=== PATIENT | male | born 1985 | race Asian ===

== ENCOUNTER 2021-08-09 20:45 | Emergency (ER) | payer OTHER ==
[~2021-08-09] VITALS: Ht 170.2 cm; Wt 84.1 kg
[2021-08-09 21:02] LABS: GLUCOSE,POINT OF CARE 167 MG/DL (70-110)
[2021-08-09] MEDS: HYDROCODONE/ACETAMINOPHEN 5-325 MG TABLET PO ONE (22:42)
[2021-08-09 23:05] VITALS: BP 115/71
== END 2021-08-09 23:06 | disposition home or self-care (01) ==
LOC: EMS 20:48
DX: S52.121A Displaced fracture of head of right radius, initial encounter for closed fracture (principal); F12.90 Cannabis use, unspecified, uncomplicated; F17.210 Nicotine dependence, cigarettes, uncomplicated; E11.9 Type 2 diabetes mellitus without complications; W01.198A Fall on same level from slipping, tripping and stumbling with subsequent striking against other object, initial encounter; Y93.89 Activity, other specified; Y92.89 Other specified places as the place of occurrence of the external cause; Y99.8 Other external cause status
CPT/HCPCS: 29105; 82962; 99283

== ENCOUNTER 2024-01-26 01:32 | Emergency (ER) | payer OTHER ==
[~2024-01-26] VITALS: Ht 170.2 cm; Wt 82.5 kg
[2024-01-26] MEDS ORDERED: GEMF600T89 PO (01:41)
[2024-01-26] MEDS ORDERED: METF-446 PO (01:41)
[2024-01-26] MEDS ORDERED: ATEN-72 PO (01:41)
[2024-01-26] MEDS ORDERED: LORA-999 PO (01:41)
[2024-01-26] MEDS: ONDANSETRON HCL 4 MG TABLET PO ONE (02:19)
[2024-01-26] MEDS: ACETAMINOPHEN 500 MG TABLET PO ONE (02:19)
[2024-01-26 02:21] LABS: BASOPHILS % (AUTO) 0.4 % (0.0-2.0); EOSINOPHILS % (AUTO) 0.4 % (1.0-6.0); HEMATOCRIT 45.3 % (41-53); HEMOGLOBIN 15.4 g/dL (13.5-17.5); LYMPHOCYTES # (AUTO) 1.4 K/uL (1.0-4.8); LYMPHOCYTES % (AUTO) 9.2 % (22.0-44.0); MEAN CORPUSCULAR HEMOGLOBIN 30.3 pg (26.0-34.0); MEAN CORPUSCULAR VOLUME 89 fL (80-100); MONOCYTES # (AUTO) 0.9 K/uL (0.1-1.0); MONOCYTES % (AUTO) 6.1 % (2.0-9.0); NEUTROPHILS # (AUTO) 12.6 K/uL (1.8-7.7); NEUTROPHILS % (AUTO) 83.9 % (40.0-70.0); PLATELET COUNT (AUTO) 203 K/uL (150-450); RED BLOOD CELL COUNT(AUTO) 5.08 MIL/uL (4.50-5.90); RED CELL DISTRIBUTION WIDTH 13.3 % (11.5-14.5); WHITE BLOOD COUNT (AUTO) 15.1 K/uL (4.5-11.0)
[2024-01-26 02:37] LABS: ANION GAP 10 mmol/L (8-16); CALCIUM, TOTAL 9.1 mg/dL (8.8-10.5); CARBON DIOXIDE 25 mmol/L (22-29); CHLORIDE 98 mmol/L (98-107); CREATININE 1.11 mg/dL (0.60-1.30); GLOMERULAR FILTR. RATE CALC > 60 mL/min (>60); GLUCOSE,RANDOM 229 mg/dL (70-110); POTASSIUM 4.4 mmol/L (3.5-5.1); SODIUM SERUM 133 mmol/L (136-145); UREA NITROGEN, BLOOD 20 mg/dL (7-18)
[2024-01-26 02:42] LABS: ALANINE AMINOTRANSFERASE 29 U/L (12-78); ALBUMIN 4.6 g/dL (3.4-5.0); ALKALINE PHOSPHATASE 63 U/L (46-116); ASPARTATE AMINOTRANSFERASE 23 U/L (15-37); BILIRUBIN,TOTAL 0.5 mg/dL (0.1-1.0); LIPASE 43 U/L (16-77); TOTAL PROTEIN, SERUM 8.5 g/dL (6.4-8.2)
[2024-01-26 02:43] LABS: ALCOHOL, BLOOD (SERUM) < 3 mg/dL (0-10)
[2024-01-26 03:11] LABS: CREATINE KINASE, TOTAL ONLY 440 U/L (39-308); TROPONIN I-HIGH SENSITIVITY 72 ng/L (<76)
[2024-01-26] MEDS ORDERED: NiCARDipine HCL 25 MG in SODIUM CHLORIDE 0.9% 240 ML IV PRN (03:15)
[2024-01-26] MEDS ORDERED: SODIUM CHLORIDE 0.9% 100 ML ONE (03:18)
[2024-01-26] MEDS ORDERED: IOHEXOL 350 MG/ML 100 ML VIAL ONE (03:18)
[2024-01-26 03:27] LABS: INR 1.1 (0.9-1.1); PROTHROMBIN TIME 11.3 SEC (9.4-11.6)
[2024-01-26] MEDS ORDERED: MIDAZOLAM HCL 5 MG/ML VIAL ONE (03:28)
[2024-01-26 03:35] LABS: LACTIC ACID 3.9 mmol/L (0.4-2.0)
[2024-01-26] MEDS: PROPOFOL 1000 MG/ISO-OSM 100 ML IV PRN (03:35)
[2024-01-26] MEDS: LevETIRAcetam 1,000 MG in DEXTROSE 5%-WATER 100 ML IV ONE (03:36)
[2024-01-26] MEDS: MIDAZOLAM HCL 5 MG/ML VIAL IVP ONE (03:36)
[2024-01-26 03:58] LABS: COVID AG,FIA SOURCE NASAL SWAB
[2024-01-26] MEDS ORDERED: MIDAZOLAM HCL 100 MG in SODIUM CHLORIDE 0.9% 180 ML IV PRN (04:00)
[2024-01-26 04:01] LABS: APPEARANCE,URINE CLEAR (CLEAR); BILIRUBIN,URINE NEGATIVE (NEGATIVE); COLOR,URINE LIGHT YELLOW (YELLOW); GLUCOSE, URINE (UA) TRACE mg/dL (NEGATIVE); KETONES,URINE NEGATIVE (NEGATIVE); LEUKOCYTE ESTERASE ,URINE NEGATIVE (NEGATIVE); NITRATE,URINE NEGATIVE (NEGATIVE); OCCULT BLOOD,URINE NEGATIVE (NEGATIVE); PH,URINE 6.5 (5.0-8.0); PROTEIN,URINE 100-200,SEE CONFIRM mg/dL (NEGATIVE); SPECIFIC GRAVITIY, URINE 1.033 (1.003-1.030); UROBILINOGEN,URINE <=1.0 mg/dL (<=1.0)
[2024-01-26 04:04] LABS: PH,URINE DRUG SCREEN 6.5 (5.0-8.0)
[2024-01-26 04:05] LABS: BACTERIA,URINE None Seen /HPF (None Seen); RBC,URINE None Seen /HPF (0-2); SQUAMOUS EPITHELIAL CELL,UR None Seen /LPF (None Seen); SULFOSALICYLIC ACID,URINE 1+ (Negative); WBC,URINE None Seen /HPF (0-5)
[2024-01-26 04:07] LABS: ALCOHOL, URINE DRUG SCREEN NEGATIVE (NEGATIVE); AMPHET/METH SCREEN,URINE POSITIVE (NEGATIVE); BARBITURATE SCREEN, URINE NEGATIVE (NEGATIVE); BENZODIAZEPINES SCREEN,URINE NEGATIVE (NEGATIVE); CANNABINOID SCREEN,URINE NEGATIVE (NEGATIVE); COCAINE SCREEN,URINE NEGATIVE (NEGATIVE); METHADONE SCREEN, URINE NEGATIVE (NEGATIVE); OPIATE SCREEN,URINE NEGATIVE (NEGATIVE); PHENCYCLIDINE SCREEN,URINE NEGATIVE (NEGATIVE)
[2024-01-26] MEDS: SODIUM CHLORIDE 0.9% 1,000 ML IV ONE (04:07)
[2024-01-26] MEDS: ACETAMINOPHEN 1000 MG/ISO-OSM 100 ML IV ONE (04:08)
[2024-01-26 04:13] VITALS: PULSE 93; RESP 33; O2SAT 98
[2024-01-26 04:15] VITALS: BP 117/73; PULSE 93; RESP 33; TEMP 100.6; O2SAT 98
[2024-01-26] MEDS ORDERED: LABETALOL HCL 200 MG in DEXTROSE 5%-WATER 160 ML IV PRN (04:15)
[2024-01-26 04:17] LABS: INFLUENZA TYPE A NEGATIVE FOR TYPE A (NEGATIVE); INFLUENZA TYPE B NEGATIVE FOR TYPE B (NEGATIVE); SARS-COV2 (COVID) ANTIGEN,FIA Negative (Negative)
[2024-01-26 06:46] LABS: GLUCOMETER DEV NAME(LOC) ERT.5; GLUCOSE,POINT OF CARE 222 MG/DL (70-110)
[2024-01-26] MEDS ORDERED: NALOXONE HCL 1 MG/ML 2 ML SYRINGE ONE (12:00)
== END 2024-01-26 05:40 | disposition short-term general hospital (02) ==
LOC: EMS 01:33
DX: I60.9 Nontraumatic subarachnoid hemorrhage, unspecified (principal); I72.8 Aneurysm of other specified arteries; E11.9 Type 2 diabetes mellitus without complications; F20.9 Schizophrenia, unspecified; F17.210 Nicotine dependence, cigarettes, uncomplicated; F12.90 Cannabis use, unspecified, uncomplicated; F15.90 Other stimulant use, unspecified, uncomplicated; Z20.822 Contact with and (suspected) exposure to COVID-19
CPT/HCPCS: 99291; 70496; 31500; 96365; 71045; 96366; 96375; 87426; 80053; 81001; 82550; 82962; 83605; 83690; 83880; 84484; 85025; 85610; 85730; 87804; 86850; 86900; 86901; 70498; 80307; 70450; 93005; 96368; 36415; J0712; G0480; J3490 ×2; J2310; Q0162; J2704; J2250; Q9967; J7060 ×2; J7030; J7050 ×2; J0131; 81002; 94002